=== PATIENT | female | born 1975 ===

== ENCOUNTER 2016-12-05 15:59 | Emergency (ER) | payer OTHER ==
[2016-12-05 18:05] VITALS: BP 132/85
--- NOTE | 2016-12-05 18:45 | UC ---
Respiratory Complaint HPI - HPI Summary HPI Summary: This is a 41 yo female who presents with a 4d h/o cough, ear pain and ST. She has been afebrile. Denies tinnitus or hearing changes. No SOB. No abd pain, n /v. One episode of diarrhea. She has had very little sleep in the last couple of days because of the cough. - History of Current Complaint Chief Complaint: UCGeneralIllness Stated Complaint: EAR PAIN/SORE THROAT/COUGH Hx Last Menstrual Period: CURRENT - Allergies/Home Medications Allergies/Adverse Reactions: Allergies Allergy/AdvReac Type Severity Reaction Status Date / Time Penicillins Allergy Intermediate Hives Verified 12/26/14 18:10 Azithromycin AdvReac GI Upset Verified 12/05/16 17:39 Erythromycin AdvReac Abdominal Verified 12/05/16 17:39 Pain Home Medications: Home Medications Throat Lozenges [Menthol Cough Drops] 5 mg MT DAILY PRN 12/05/16 [History Confirmed 12/05/16] PMH/Surg Hx/FS Hx/Imm Hx Cardiovascular History Of: Reports: Cardiac Disorders - irregular beats, Hypertension - Surgical History Surgical History: Yes Surgery Procedure, Year, and Place: , tubal - Family History Known Family History: Positive: Cardiac Disease - Social History Alcohol Use: Occasionally Substance Use Type: None Smoking Status (MU): Former Smoker Type: Cigarettes Length of Time of Smoking/Using Tobacco: 20 yrs When Did the Patient Quit Smoking/Using Tobacco: 2007 Review of Systems Constitutional: Negative Skin: Negative Eyes: Negative ENT: Sore Throat Respiratory: Cough Cardiovascular: Negative Gastrointestinal: Diarrhea Genitourinary: Negative Motor: Negative Neurovascular: Negative Musculoskeletal: Negative Neurological: Negative Psychological: Negative All Other Systems Reviewed And Are Negative: Yes Physical Exam Triage Information Reviewed: Yes Appearance: Well-Appearing Vital Signs: Initial Vital Signs Temp 98.6 F 12/05/16 17:34 Pulse 65 12/05/16 17:34 Resp 16 12/05/16 17:34 BP 132/85 12/05/16 17:34 Pulse Ox 98 12/05/16 17:34 Vital Signs Reviewed: Yes ENT: Positive: TM dull. Negative: Pharyngeal erythema, TM red Neck: Positive: Supple, Nontender, No Lymphadenopathy Respiratory: Positive: Chest non-tender, Lungs clear, Normal breath sounds. Negative: Crackles, Rhonchi, Wheezing Cardiovascular: Positive: RRR, No Murmur Abdomen Description: Positive: Nontender UC Diagnostic Evaluation - Laboratory O2 Sat by Pulse Oximetry: 98 Respiratory Course/Dx - Course Course Of Treatment: Patient presents with a 4d h/o cough, ear pain and ST. Exam is benign. Likely an acute viral illness. Recommend treatment with decongestants - Differential Dx/Diagnosis Differential Diagnosis/HQI/PQRI: Asthma, Bronchitis, Influenza, Laryngitis, Sinusitis Provider Diagnoses: URI Discharge - Discharge Plan Condition: Stable Disposition: HOME Patient Education Materials: Upper Respiratory Infection (ED) Referrals: Kalee Kwon MD [Primary Care Provider] - Additional Instructions: Activity: As tolerated Instructions: 1. Use sudafed during the day for congestion relief 2. Use benadryl at night for congestion relief and to help you sleep
== END 2016-12-05 18:47 | disposition home or self-care (01) ==
LOC: UCCORT 15:59
DX: J06.9 Acute upper respiratory infection, unspecified (principal); Z88.1 Allergy status to other antibiotic agents; Z88.0 Allergy status to penicillin; Z87.891 Personal history of nicotine dependence
CPT/HCPCS: 99211; G0463